=== PATIENT | male | born 1955 | race African-American/Black ===

== ENCOUNTER 2018-08-20 12:15 | Emergency (ER) | payer BC ==
[~2018-08-20] VITALS: Ht 190.5 cm; Wt 111.0 kg
[2018-08-20] MEDS ORDERED: LIDOCAINE HCL/PF 1% 10 MG/ML 5ML VIAL IJ ONE (18:30)
[2018-08-20] MEDS ORDERED: BACITRACIN ZINC OINT UDPKT TOP ONE (18:30)
[2018-08-20] MEDS ORDERED: TETANUS, DIPHTHERIA, PERTUSSIS VAC/PF 0.5ML (>7YR OLD) IM ONE (18:30)
[2018-08-20 19:58] VITALS: BP 127/89
== END 2018-08-20 19:59 | disposition home or self-care (01) ==
LOC: ER 12:15
DX: S61.212A Laceration without foreign body of right middle finger without damage to nail, initial encounter (principal); W01.198A Fall on same level from slipping, tripping and stumbling with subsequent striking against other object, initial encounter; Y93.H2 Activity, gardening and landscaping; Y92.017 Garden or yard in single-family (private) house as the place of occurrence of the external cause; Z23 Encounter for immunization
CPT/HCPCS: 12001; 90471; 90715; 99283

== ENCOUNTER 2018-08-22 07:26 | Emergency (ER) | payer BC ==
[~2018-08-22] VITALS: Ht 190.5 cm; Wt 110.0 kg
[2018-08-22 07:28] VITALS: BP 148/90
[2018-08-22] MEDS: BACITRACIN ZINC OINT UDPKT TOP ONE (08:10)
== END 2018-08-22 08:13 | disposition home or self-care (01) ==
LOC: ER 07:26
DX: Z48.01 Encounter for change or removal of surgical wound dressing (principal); F12.10 Cannabis abuse, uncomplicated; Z88.5 Allergy status to narcotic agent
CPT/HCPCS: 99282

== ENCOUNTER 2018-08-29 07:16 | Emergency (ER) | payer BC ==
[~2018-08-29] VITALS: Ht 190.5 cm; Wt 110.0 kg
[2018-08-29 07:26] VITALS: BP 160/90
== END 2018-08-29 08:02 | disposition home or self-care (01) ==
LOC: ER 07:16
DX: Z48.00 Encounter for change or removal of nonsurgical wound dressing (principal); R03.0 Elevated blood-pressure reading, without diagnosis of hypertension; F12.90 Cannabis use, unspecified, uncomplicated
CPT/HCPCS: 99281; Z7610

== ENCOUNTER 2018-09-03 07:10 | Emergency (ER) | payer BC ==
[~2018-09-03] VITALS: Ht 190.5 cm; Wt 109.0 kg
[2018-09-03 07:12] VITALS: BP 150/96
== END 2018-09-03 07:50 | disposition home or self-care (01) ==
LOC: ER 07:16
DX: Z48.02 Encounter for removal of sutures (principal)
CPT/HCPCS: 99281